=== PATIENT | female | born 1960 | race Caucasian/White ===

== ENCOUNTER 2016-06-18 09:48 | Observation (INO) | payer SELFPAY ==
--- NOTE | 2016-06-18 12:42 | RAD ---
HISTORY: Chest pain Study: Chest one view Comparison: None Findings: The trachea is midline. The cardiac silhouette is unremarkable. The lungs are clear without focal infiltrate or effusion. The bony thorax is unremarkable. IMPRESSION: 1. No acute cardiopulmonary disease. Reported By:
--- NOTE | 2016-06-18 13:32 | DR.H&P ---
H&P - History & Physical for Day of: H&P Date: 06/18/16 - Chief Complaint Chief Complaint: Chest tightness, Low back pain and body aches consisitent with Lupus flare. - Allergies Allergies/Adverse Reactions: Allergies Allergy/AdvReac Type Severity Reaction Status Date / Time Angel Luis AdvReac Verified 06/18/16 13:30 - History of Present Illness History of Present Illness: the patient is a 56-year-old white female who presents to the [facility] with complaints of increased back pain with muscle aches. States she is hurting all over. Has been taking Gabapentin. Complains of chest tightness as well. Denies nausea, URI, or fever. Does have history of Lupus. - Past Medical History Past Medical History: Anxiety Additional Medical History: ITP, Lupus - Past Surgical History Surgical History: Cholecystectomy, Hysterectomy, Spleenectomy, Tonsillectomy - Social History Does patient currently use any type of tobacco product: Yes Have you used tobacco products in the last 12 months: Yes Type of Tobacco Use: Cigarettes Does any household member use tobacco: No Alcohol Use: None Drug Use: None - Review of Systems Constitutional: Weakness, Malaise Eyes: No Symptoms Reported ENT: No Symptoms Reported Respiratory: No Symptoms Reported Cardiovascular: Chest Pain Gastrointestinal: No Symptoms Reported Genitourinary: No Symptoms Reported Musculoskeletal: Back Pain, Leg Pain, Other (DIFFUSE PAIN) Skin: No Symptoms Reported Oriented: Normal Eyes: Normal Ear: Normal Nose: Normal Throat: Normal Respiratory: Clear Throughout Cardiovascular: Normal : Normal Auscultation: Bowel Sounds: Normal Palpation: Normal Tenderness: Normal Skin: Normal Musculoskeletal: Right, Left, Elbow, Knee, Leg, Back:Lumbar, Tender Psychiatric: Normal Mood Description: Calm Affect: Quiet Speech Pattern: Clear - Assessment/Plan (1) Chest tightness Status: Acute Plan: CARDIAC ENZYMES AND EKGS (2) Lupus (systemic lupus erythematosus) Qualifiers: Systemic lupus erythematosus type: S Systemic lupus erythematosus organ involvement: S Status: Acute Plan: LABS, SOLUMEDROL, MORPHINE (3) Myalgia Status: Acute Plan: SOLUMEDROL (4) Low back pain Qualifiers: Chronicity: C Back pain laterality: B Sciatica presence: S Sciatica laterality: S Status: Acute Plan: MRI LUMBAR SPINE, SOLUMEDROL, MORPHINE
[2016-06-18 14:41] LABS: BASOPHILS # (AUTO) 0.1 X10^3/uL (0.0-0.1); BASOPHILS % (AUTO) 1.2 % (0.2-1.0); EOSINOPHILS # (AUTO) 0.1 x10^3/uL (0.0-0.2); EOSINOPHILS % (AUTO) 1.2 % (0.9-2.9); HEMATOCRIT 37.5 % (36.0-47.0); HEMOGLOBIN 12.4 g/dL (12.0-16.0); LYMPHOCYTES # (AUTO) 3.5 X10^3/uL (1.3-2.9); LYMPHOCYTES % (AUTO) 42.6 % (21.0-51.0); MEAN CORPUSCULAR HEMOGLOBIN 30.4 pg (27.0-34.0); MEAN CORPUSCULAR HGB CONC 33.1 g/dL (33.0-35.0); MEAN CORPUSCULAR VOLUME 91.8 fL (80.0-100.0); MEAN PLATELET VOLUME 9.6 fL (7.4-11.0); MONOCYTES # (AUTO) 0.7 x10^3/uL (0.3-0.8); MONOCYTES % (AUTO) 8.7 % (0.0-13.0); NEUTROPHILS # (AUTO) 3.8 x10^3/uL (2.2-4.8); NEUTROPHILS % (AUTO) 46.3 % (42.0-75.0); PLATELET COUNT 336 X10^3/uL (150.0-450.0); RED BLOOD COUNT 4.09 X10^6/uL (3.5-5.4); RED CELL DISTRIBUTION WIDTH 13.1 % (11.6-16.5); WHITE BLOOD COUNT 8.2 X10^3/uL (3.6-10.0)
[2016-06-18] MEDS: SOLU-Medrol 125 MG VIAL IVP SCH ×2 (14:44→21:16)
[2016-06-18] MEDS: NS 1000 ML 1,000 ML IV SCH (14:44)
[2016-06-18 14:49] LABS: ALANINE AMINOTRANSFERASE 24 Units/L (12-78); ALBUMIN 4.1 g/dL (3.4-5.0); ALKALINE PHOSPHATASE 69 Units/L (46-116); ASPARTATE AMINO TRANSFERASE 17 Units/L (15-37); BLOOD UREA NITROGEN 12 mg/dL (7-18); CARBON DIOXIDE 28.3 mmol/L (21-32); CHLORIDE 107 mmol/L (98-107); CREATININE 0.73 mg/dL (0.55-1.02); GLUCOSE 94 mg/dL (65-99); MAGNESIUM 1.9 mg/dL (1.7-2.9); SODIUM 144 mmol/L (136-145); eGFR BLACK RACES > 60 (>60); eGFR NON BLACK RACES > 60 (>60)
[2016-06-18 14:54] LABS: RHEUMATOID FACTOR NEGATIVE (NEGATIVE)
[2016-06-18 15:04] LABS: CKMB % 0.9 % (<4); CREATINE KINASE 118 Units/L (26-192); CREATINE KINASE MB < 1.0 ng/mL (0-4.0); TROPONIN I < 0.02 ng/mL (0-1.5)
[2016-06-18 15:27] LABS: ERYTHROCYTE SEDIMENTATION RATE 14 MM/HOUR (0-20)
[2016-06-18 15:46] LABS: BILIRUBIN,URINE NEGATIVE (NEGATIVE); BLOOD/HEMOGLOBIN,URINE NEGATIVE (NEGATIVE); GLUCOSE, URINE NEGATIVE (NEGATIVE); KETONES,URINE NEGATIVE (NEGATIVE); LEUKOCYTE ESTERASE ,URINE 3+ (NEGATIVE); NITRITES,URINE NEGATIVE (NEGATIVE); PH,URINE 6.5 (5.0 - 8.0); PROTEIN,URINE NEGATIVE (NEGATIVE); UROBILINOGEN,URINE NORMAL (NORMAL)
[2016-06-18 15:55] LABS: APPEARANCE,URINE HAZY (CLEAR); BACTERIA,URINE TRACE /HPF (NEGATIVE); COLOR,URINE YELLOW (YELLOW); RBC,URINE 0-2 /HPF (NEGATIVE); SQUAMOUS EPITHELIAL CELL,UR RARE /HPF (NEGATIVE)
[2016-06-18 16:26] VITALS: BMI 24.0
[2016-06-18 16:49] LABS: CKMB % 0.9 % (<4); CREATINE KINASE 108 Units/L (26-192); CREATINE KINASE MB < 1.0 ng/mL (0-4.0); TROPONIN I < 0.02 ng/mL (0-1.5)
--- NOTE | 2016-06-18 17:05 | MRI ---
MRI of lumbar spine without contrast Indication: Chronic lower back pain Comparison:None available Technique: Multiplanar multi-sequence MRI of the lumbar spine was obtained. Sagittal T1, sagittal T 2, and stir weighted images, axial T1, and axial T2 images were obtained. Findings: Lumbar spine demonstrates normal alignment without spondylolisthesis. There is a mild dextroscoliosi s of the lumbar spine. There is no localizing bone marrow signal abnormality within the lumbar spine . There is no significant disc desiccation or disc space loss. No prevertebral or paraspinal soft ti ssue swelling or fluid collection. The conus has a normal termination. Limited visualization of the abdomen and pelvis demonstrates the small cyst within the right kidney. At T12-L1: Unremarkable At L1-L2: Unremarkable At L2-3: Unremarkable At L3-4: Mild right lateralizing disc protrusion causes no significant spinal canal or neural forami nal stenosis. At L4-5: Mild facet arthropathy without spinal canal, neural foraminal stenosis. At L5-S1: Mild facet arthropathy without spinal canal or neural foraminal stenosis. IMPRESSION: Mild lumbar spine dextroscoliosis. No significant spinal canal or neural foraminal narrowing. Reported By:
[2016-06-18] MEDS: MORPHINE SULFATE INJ 2 MG IVP PRN ×2 (18:58→22:57)
[2016-06-18] MEDS: LOVENOX INJ 40 MG SYR SC SCH (20:46)
[2016-06-18 21:30] LABS: CREATINE KINASE 100 Units/L (26-192); CREATINE KINASE MB < 1.0 ng/mL (0-4.0); TROPONIN I < 0.02 ng/mL (0-1.5)
[2016-06-19] MEDS: NS 1000 ML 1,000 ML IV SCH ×2 (01:55→13:48)
[2016-06-19] MEDS: SOLU-Medrol 125 MG VIAL IVP SCH ×3 (05:34→21:53)
[2016-06-19 05:51] LABS: CHOL/HDL RATIO 3.2 (0.0-5.0)
[2016-06-19 07:08] LABS: BASOPHILS % (AUTO) 0.5 % (0.2-1.0); HEMATOCRIT 36.5 % (36.0-47.0); HEMOGLOBIN 12.2 g/dL (12.0-16.0); LYMPHOCYTES # (AUTO) 1.1 X10^3/uL (1.3-2.9); LYMPHOCYTES % (AUTO) 12.7 % (21.0-51.0); MEAN CORPUSCULAR HEMOGLOBIN 30.4 pg (27.0-34.0); MEAN CORPUSCULAR HGB CONC 33.4 g/dL (33.0-35.0); MEAN PLATELET VOLUME 10.2 fL (7.4-11.0); MONOCYTES # (AUTO) 0.1 x10^3/uL (0.3-0.8); MONOCYTES % (AUTO) 0.8 % (0.0-13.0); NEUTROPHILS # (AUTO) 7.1 x10^3/uL (2.2-4.8); PLATELET COUNT 325 X10^3/uL (150.0-450.0); RED BLOOD COUNT 4.01 X10^6/uL (3.5-5.4); WHITE BLOOD COUNT 8.3 X10^3/uL (3.6-10.0)
[2016-06-19 07:41] LABS: ALANINE AMINOTRANSFERASE 25 Units/L (12-78); ALBUMIN 3.5 g/dL (3.4-5.0); ALKALINE PHOSPHATASE 69 Units/L (46-116); ASPARTATE AMINO TRANSFERASE 24 Units/L (15-37); BLOOD UREA NITROGEN 13 mg/dL (7-18); CALCIUM 8.9 mg/dL (8.5-10.1); CARBON DIOXIDE 21.8 mmol/L (21-32); CHLORIDE 109 mmol/L (98-107); COR NA(FOR HYPERGLY) 144 mmol/L (136-145); CREATININE 0.76 mg/dL (0.55-1.02); GLUCOSE 160 mg/dL (65-99); SODIUM 143 mmol/L (136-145); eGFR BLACK RACES > 60 (>60); eGFR NON BLACK RACES > 60 (>60)
[2016-06-19] MEDS: LOVENOX INJ 40 MG SYR SC SCH ×2 (08:20→21:47)
[2016-06-19] MEDS: MORPHINE SULFATE INJ 2 MG IVP PRN (10:06)
--- NOTE | 2016-06-19 13:19 | PCM.PROG ---
Progress Note - Progress Note for Day of Date: 06/19/16 - Past Medical Family Social History Past Med/Fam/Surg Hx: No changes since H&P Allergies: Allergies Codeine Adverse Reaction (Verified 06/18/16 13:30) - Review of Systems ROS: No change since H&P - Vital Signs and I&O's Vital Signs: Temperature 98.9 F Pulse Rate [Right Brachial] 71 Respiratory Rate 16 Blood Pressure [Right Arm] 108/54 O2 Sat by Pulse Oximetry 97 Intake and Output: Intake & Output 06/17/16 06/18/16 06/19/16 06/20/16 11:59 11:59 11:59 11:59 Intake Total 1476 Balance 1476 - Physical Exam Oriented: Normal Eyes: Normal Ear: Normal Nose: Normal Throat: Normal Cardiovascular: Normal : Normal Auscultation: Bowel Sounds: Normal Tenderness: Normal Skin: Normal Musculoskeletal: Right, Left, Elbow, Knee, Leg, Back:Lumbar, Tender Psychiatric: Normal Mood Description: Calm Affect: Quiet Speech Pattern: Clear, Appropriate - Laboratory and Diagnostics Result Diagrams: 06/19/16 04:14 06/19/16 04:14 Labs: Laboratory WBC 8.3 X10^3/uL (3.6-10.0) 06/19/16 04:14 RBC 4.01 X10^6/uL (3.5-5.4) 06/19/16 04:14 Hgb 12.2 g/dL (12.0-16.0) 06/19/16 04:14 Hct 36.5 % (36.0-47.0) 06/19/16 04:14 MCV 91.0 fL (80.0-100.0) 06/19/16 04:14 MCH 30.4 pg (27.0-34.0) 06/19/16 04:14 MCHC 33.4 g/dL (33.0-35.0) 06/19/16 04:14 RDW 13.0 % (11.6-16.5) 06/19/16 04:14 Plt Count 325 X10^3/uL (150.0-450.0) 06/19/16 04:14 MPV 10.2 fL (7.4-11.0) 06/19/16 04:14 Neut % 86.0 % (42.0-75.0) H 06/19/16 04:14 Lymph % 12.7 % (21.0-51.0) L 06/19/16 04:14 [place] % 0.8 % (0.0-13.0) 06/19/16 04:14 Eos % 0.0 % (0.9-2.9) L 06/19/16 04:14 Baso % 0.5 % (0.2-1.0) 06/19/16 04:14 Neut # 7.1 x10^3/uL (2.2-4.8) H 06/19/16 04:14 Lymph # 1.1 X10^3/uL (1.3-2.9) L 06/19/16 04:14 [place] # 0.1 x10^3/uL (0.3-0.8) L 06/19/16 04:14 Eos # 0.0 x10^3/uL (0.0-0.2) 06/19/16 04:14 Baso # 0.0 X10^3/uL (0.0-0.1) 06/19/16 04:14 Absolute Nucleated RBC 0.1 /100WBC 06/19/16 04:14 ESR 14 MM/HOUR (0-20) 06/18/16 14:20 Sodium 143 mmol/L (136-145) 06/19/16 04:14 Corrected Sodium 144 mmol/L (136-145) 06/19/16 04:14 Potassium 4.3 mmol/L (3.5-5.1) 06/19/16 04:14 Chloride 109 mmol/L (98-107) H 06/19/16 04:14 Carbon Dioxide 21.8 mmol/L (21-32) 06/19/16 04:14 BUN 13 mg/dL (7-18) 06/19/16 04:14 Creatinine 0.76 mg/dL (0.55-1.02) 06/19/16 04:14 Est GFR (MDRD) Af Amer > 60 (>60) 06/19/16 04:14 Est GFR (MDRD) Non-Af > 60 (>60) 06/19/16 04:14 Glucose 160 mg/dL (65-99) H 06/19/16 04:14 Calcium 8.9 mg/dL (8.5-10.1) 06/19/16 04:14 Corrected Calcium TNP 06/19/16 04:14 Magnesium 1.9 mg/dL (1.7-2.9) 06/18/16 14:20 Total Bilirubin 0.50 mg/dL (0.2-1.0) 06/19/16 04:14 AST 24 Units/L (15-37) 06/19/16 04:14 ALT 25 Units/L (12-78) 06/19/16 04:14 Alkaline Phosphatase 69 Units/L (46-116) 06/19/16 04:14 Creatine Kinase 100 Units/L (26-192) 06/18/16 20:40 CK-MB (CK-2) < 1.0 ng/mL (0-4.0) 06/18/16 20:40 CK/CKMB % Calc 1.0 % (<4) 06/18/16 20:40 Troponin I < 0.02 ng/mL (0-1.5) 06/18/16 20:40 C-Reactive Protein 1.20 mg/L (0-3.0) 06/18/16 14:20 Total Protein 7.0 g/dL (6.4-8.2) 06/19/16 04:14 Albumin 3.5 g/dL (3.4-5.0) 06/19/16 04:14 Globulin 3.5 g/dL (2.5-4.5) 06/19/16 04:14 Albumin/Globulin Ratio 1.0 Ratio (1.1-2.1) L 06/19/16 04:14 Triglycerides 40 mg/dL (0-150) 06/19/16 04:14 Cholesterol 174 mg/dL (0-200) 06/19/16 04:14 LDL Cholesterol, Calc 112 mg/dL (0-100) H 06/19/16 04:14 HDL Cholesterol 54 mg/dL (40-60) 06/19/16 04:14 Cholesterol/HDL Ratio 3.2 (0.0-5.0) 06/19/16 04:14 Specimen Type Clean catch urine 06/18/16 15:41 Urine Color Yellow (YELLOW) 06/18/16 15:41 Urine Appearance Hazy (CLEAR) 06/18/16 15:41 Urine pH 6.5 (5.0 - 8.0) 06/18/16 15:41 Ur Specific [place] 1.020 (1.000-1.030) 06/18/16 15:41 Urine Protein Negative (NEGATIVE) 06/18/16 15:41 Urine Glucose (UA) Negative (NEGATIVE) 06/18/16 15:41 Urine Ketones Negative (NEGATIVE) 06/18/16 15:41 Urine Occult Blood Negative (NEGATIVE) 06/18/16 15:41 Urine Nitrite Negative (NEGATIVE) 06/18/16 15:41 Urine Bilirubin Negative (NEGATIVE) 06/18/16 15:41 Urine Urobilinogen Normal (NORMAL) 06/18/16 15:41 Ur Leukocyte Esterase 3+ (NEGATIVE) 06/18/16 15:41 Urine RBC 0-2 /HPF (NEGATIVE) 06/18/16 15:41 Urine WBC 3-5 /HPF (NEGATIVE) 06/18/16 15:41 Ur Squamous Epith Cells Rare /HPF (NEGATIVE) 06/18/16 15:41 Urine Bacteria Trace /HPF (NEGATIVE) 06/18/16 15:41 Ur Culture Indicated? No/not indicated 06/18/16 15:41 Rheumatoid Factor Negative (NEGATIVE) 06/18/16 14:20 - Plan (1) Chest tightness Status: Acute Plan: CARDIAC ENZYMES AND EKGS WNL, PLAN TO CONTINUE TO TREATMEN MS FLARE (2) Myalgia Status: Acute Plan: SOLUMEDROL (3) Low back pain Status: Chronic Qualifiers: Chronicity: C Back pain laterality: B Sciatica presence: S Sciatica laterality: S Plan: MRI LUMBAR SPINE, SOLUMEDROL, MORPHINE (4) Lupus (systemic lupus erythematosus) Status: Chronic Qualifiers: Systemic lupus erythematosus type: S Systemic lupus erythematosus organ involvement: S Plan: LABS, SOLUMEDROL, MORPHINE
[2016-06-19] MEDS: NEURONTIN CAP 400 MG PO SCH ×2 (13:43→21:51)
[2016-06-19] MEDS: PERCOCET TAB 5/325 MG PO SCH ×2 (14:00→21:50)
[2016-06-19] MEDS ORDERED: GABAPENTIN PO SCH (14:00)
[2016-06-19] MEDS: PROTONIX INJ 40 MG VIAL IVP SCH (16:40)
[2016-06-19] MEDS ORDERED: COLACE CAP 100 MG PO SCH (21:00)
[2016-06-20] MEDS: MORPHINE SULFATE INJ 2 MG IVP PRN (00:38)
[2016-06-20] MEDS: NS 1000 ML 1,000 ML IV SCH (03:54)
[2016-06-20] MEDS: PERCOCET TAB 5/325 MG PO SCH ×2 (03:54→09:25)
[2016-06-20 05:32] LABS: ALANINE AMINOTRANSFERASE 20 Units/L (12-78); ALKALINE PHOSPHATASE 55 Units/L (46-116); ASPARTATE AMINO TRANSFERASE 11 Units/L (15-37); BLOOD UREA NITROGEN 13 mg/dL (7-18); CALCIUM 8.5 mg/dL (8.5-10.1); CARBON DIOXIDE 24.4 mmol/L (21-32); CHLORIDE 112 mmol/L (98-107); COR CA(FOR HYPOALB) 9.3 mg/dL (8.5-10.1); COR NA(FOR HYPERGLY) 147 mmol/L (136-145); CREATININE 0.66 mg/dL (0.55-1.02); GLUCOSE 140 mg/dL (65-99); SODIUM 146 mmol/L (136-145); TOTAL PROTEIN 6.1 g/dL (6.4-8.2); eGFR BLACK RACES > 60 (>60); eGFR NON BLACK RACES > 60 (>60)
[2016-06-20] MEDS: SOLU-Medrol 125 MG VIAL IVP SCH (05:49)
[2016-06-20] MEDS: NEURONTIN CAP 400 MG PO SCH (05:49)
[2016-06-20 05:55] LABS: BASOPHILS % (AUTO) 0.2 % (0.2-1.0); HEMATOCRIT 34.3 % (36.0-47.0); HEMOGLOBIN 11.3 g/dL (12.0-16.0); LYMPHOCYTES # (AUTO) 1.6 X10^3/uL (1.3-2.9); MEAN CORPUSCULAR HEMOGLOBIN 30.4 pg (27.0-34.0); MEAN CORPUSCULAR VOLUME 92.1 fL (80.0-100.0); MONOCYTES # (AUTO) 0.4 x10^3/uL (0.3-0.8); MONOCYTES % (AUTO) 1.7 % (0.0-13.0); NEUTROPHILS # (AUTO) 20.3 x10^3/uL (2.2-4.8); NEUTROPHILS % (AUTO) 91.1 % (42.0-75.0); PLATELET COUNT 312 X10^3/uL (150.0-450.0); RED BLOOD COUNT 3.73 X10^6/uL (3.5-5.4); RED CELL DISTRIBUTION WIDTH 13.1 % (11.6-16.5)
[2016-06-20 05:57] LABS: WHITE BLOOD COUNT 22.3 X10^3/uL (3.6-10.0)
[2016-06-20 06:23] LABS: BAND NEUTROPHILS % 3 % (0-10); PLATELET MORPHOLOGY COMMENT NORMAL (NORMAL)
--- NOTE | 2016-06-20 07:00 | RAD ---
AP Chest Indication: Lower back and chest pain Comparison: 06/18/2016 Findings: The trachea is midline. The cardiac silhouette is unremarkable. The lungs are clear without focal infiltrate or effusion. The bony thorax is unremarkable. IMPRESSION: 1. No acute cardiopulmonary abnormality. Reported By:
[2016-06-20] MEDS: LOVENOX INJ 40 MG SYR SC SCH (09:24)
[2016-06-20] MEDS: PROTONIX INJ 40 MG VIAL IVP SCH (09:25)
--- NOTE | 2016-06-20 12:24 | PCM.DCPLAN ---
Discharge Summary - Admission Date Date of Admission: 06/18/16 - Discharge Date Discharge Date: 06/20/16 - Admission Diagnoses (1) Chest tightness Status: Acute (2) Myalgia Status: Acute (3) Low back pain Status: Chronic (4) Lupus (systemic lupus erythematosus) Status: Chronic - Discharge Diagnoses Discharge Diagnosis: SAME ADMISSION - Discharge Medications Discharge Medications: Feubvlkvqw-Oaffnwjcjuldk-Sxitj [Fioricet 50-300-40 mg] 1 tab PO TID 06/18/16 [ History] Gabapentin [Neurontin tab 800 mg] 2 tab PO TID MDD pain 06/18/16 [History] Oxycodone/Acet 5 mg/325 mg [PERCOCET 5/325 MG *] 1 tab PO Q6HR MDD pain [History] - Hospital Course Vital Signs: Temperature 97.8 F Pulse Rate [Right Brachial] 66 Respiratory Rate 20 Blood Pressure [Right Arm] 113/59 O2 Sat by Pulse Oximetry 96 Latest Lab Results: Laboratory Last Values WBC 22.3 X10^3/uL (3.6-10.0) H* 06/20/16 04:35 RBC 3.73 X10^6/uL (3.5-5.4) 06/20/16 04:35 Hgb 11.3 g/dL (12.0-16.0) L 06/20/16 04:35 Hct 34.3 % (36.0-47.0) L 06/20/16 04:35 MCV 92.1 fL (80.0-100.0) 06/20/16 04:35 MCH 30.4 pg (27.0-34.0) 06/20/16 04:35 MCHC 33.0 g/dL (33.0-35.0) 06/20/16 04:35 RDW 13.1 % (11.6-16.5) 06/20/16 04:35 Plt Count 312 X10^3/uL (150.0-450.0) 06/20/16 04:35 Plt Count Comment Adequate (ADEQUATE) 06/20/16 04:35 MPV 10.0 fL (7.4-11.0) 06/20/16 04:35 Neut % 91.1 % (42.0-75.0) H 06/20/16 04:35 Lymph % 7.0 % (21.0-51.0) L 06/20/16 04:35 [place] % 1.7 % (0.0-13.0) 06/20/16 04:35 Eos % 0.0 % (0.9-2.9) L 06/20/16 04:35 Baso % 0.2 % (0.2-1.0) 06/20/16 04:35 Neut # 20.3 x10^3/uL (2.2-4.8) H 06/20/16 04:35 Lymph # 1.6 X10^3/uL (1.3-2.9) 06/20/16 04:35 [place] # 0.4 x10^3/uL (0.3-0.8) 06/20/16 04:35 Eos # 0.0 x10^3/uL (0.0-0.2) 06/20/16 04:35 Baso # 0.0 X10^3/uL (0.0-0.1) 06/20/16 04:35 Absolute Nucleated RBC 0.0 /100WBC 06/20/16 04:35 Total Counted 100 06/20/16 04:35 Neutrophils % (Manual) 83 % (39-76) H 06/20/16 04:35 Band Neutrophils % 3 % (0-10) 06/20/16 04:35 Lymphocytes % (Manual) 10 % (13-43) L 06/20/16 04:35 Monocytes % (Manual) 4 % (4-9) 06/20/16 04:35 Plt Morphology Comment Normal (NORMAL) 06/20/16 04:35 RBC Morphology Normal (NORMAL) 06/20/16 04:35 ESR 14 MM/HOUR (0-20) 06/18/16 14:20 Sodium 146 mmol/L (136-145) H 06/20/16 04:35 Corrected Sodium 147 mmol/L (136-145) H 06/20/16 04:35 Potassium 4.2 mmol/L (3.5-5.1) 06/20/16 04:35 Chloride 112 mmol/L (98-107) H 06/20/16 04:35 Carbon Dioxide 24.4 mmol/L (21-32) 06/20/16 04:35 BUN 13 mg/dL (7-18) 06/20/16 04:35 Creatinine 0.66 mg/dL (0.55-1.02) 06/20/16 04:35 Est GFR (MDRD) Af Amer > 60 (>60) 06/20/16 04:35 Est GFR (MDRD) Non-Af > 60 (>60) 06/20/16 04:35 Glucose 140 mg/dL (65-99) H 06/20/16 04:35 Calcium 8.5 mg/dL (8.5-10.1) 06/20/16 04:35 Corrected Calcium 9.3 mg/dL (8.5-10.1) 06/20/16 04:35 Magnesium 1.9 mg/dL (1.7-2.9) 06/18/16 14:20 Total Bilirubin 0.50 mg/dL (0.2-1.0) 06/20/16 04:35 AST 11 Units/L (15-37) L 06/20/16 04:35 ALT 20 Units/L (12-78) 06/20/16 04:35 Alkaline Phosphatase 55 Units/L (46-116) 06/20/16 04:35 Creatine Kinase 100 Units/L (26-192) 06/18/16 20:40 CK-MB (CK-2) < 1.0 ng/mL (0-4.0) 06/18/16 20:40 CK/CKMB % Calc 1.0 % (<4) 06/18/16 20:40 Troponin I < 0.02 ng/mL (0-1.5) 06/18/16 20:40 C-Reactive Protein 1.20 mg/L (0-3.0) 06/18/16 14:20 Total Protein 6.1 g/dL (6.4-8.2) L 06/20/16 04:35 Albumin 3.0 g/dL (3.4-5.0) L 06/20/16 04:35 Globulin 3.1 g/dL (2.5-4.5) 06/20/16 04:35 Albumin/Globulin Ratio 1.0 Ratio (1.1-2.1) L 06/20/16 04:35 Triglycerides 40 mg/dL (0-150) 06/19/16 04:14 Cholesterol 174 mg/dL (0-200) 06/19/16 04:14 LDL Cholesterol, Calc 112 mg/dL (0-100) H 06/19/16 04:14 HDL Cholesterol 54 mg/dL (40-60) 06/19/16 04:14 Cholesterol/HDL Ratio 3.2 (0.0-5.0) 06/19/16 04:14 Specimen Type Clean catch urine 06/18/16 15:41 Urine Color Yellow (YELLOW) 06/18/16 15:41 Urine Appearance Hazy (CLEAR) 06/18/16 15:41 Urine pH 6.5 (5.0 - 8.0) 06/18/16 15:41 Ur Specific [place] 1.020 (1.000-1.030) 06/18/16 15:41 Urine Protein Negative (NEGATIVE) 06/18/16 15:41 Urine Glucose (UA) Negative (NEGATIVE) 06/18/16 15:41 Urine Ketones Negative (NEGATIVE) 06/18/16 15:41 Urine Occult Blood Negative (NEGATIVE) 06/18/16 15:41 Urine Nitrite Negative (NEGATIVE) 06/18/16 15:41 Urine Bilirubin Negative (NEGATIVE) 06/18/16 15:41 Urine Urobilinogen Normal (NORMAL) 06/18/16 15:41 Ur Leukocyte Esterase 3+ (NEGATIVE) 06/18/16 15:41 Urine RBC 0-2 /HPF (NEGATIVE) 06/18/16 15:41 Urine WBC 3-5 /HPF (NEGATIVE) 06/18/16 15:41 Ur Squamous Epith Cells Rare /HPF (NEGATIVE) 06/18/16 15:41 Urine Bacteria Trace /HPF (NEGATIVE) 06/18/16 15:41 Ur Culture Indicated? No/not indicated 06/18/16 15:41 Rheumatoid Factor Negative (NEGATIVE) 06/18/16 14:20 Hospital Course: PATIENT IS A 56-YEAR-OLD WHITE FEMALE WHO WAS A DIRECT ADMIT [facility] [place] [facility] WITH COMPLAINTS OF LUPUS EXACERBATION. pATIENT COMPLAINED OF DIFFUSE PAIN AND CHEST PAIN WELL SEVERE LOW BACK PAIN. pATIENT WAS TREATED WITH iv STEROIDS AND iv PAIN MEDICATION PATIENT HAD A LUMBAR SPINE mri WHICH REVEALED DEGENERATIVE DISC DISEASE. tHIS MORNING PATIENT'S CONDITION WAS OVERALL MUCH IMPROVED PATIENT'S SERIAL CARDIAC ENZYMES WERE NEGATIVE AND PATIENT DENIED ANY CHEST PAIN PATIENT'S WHITE BLOOD COUNT WAS ELEVATED DUE TO STEROIDS PATIENT INSTRUCTED TO FOLLOW-UP WITH PRIMARY CARE IN 1 WEEK FOR FURTHER EVALUATION. pATIENT INSTRUCTED TO INCREASE BY MOUTH HYDRATION AND REST AND RESUME HOME MEDICATIONS. - Discharge Plan Disposition: 01 HOME, SELF-CARE Condition: Stable - Follow ups/Referrals Follow ups/Referrals: DAVID COLEMAN [Nurse Practitioner] - 06/26/16 3:30 pm - Instructions Instructions: Systemic Lupus Erythematosus, Adult, Back Pain, Adult, Muscle Pain, Adult, Back Exercises, Immunosuppression Additional Instructions: DC HOME TO RESUME HOME MEDS SEND COPIES OF RAD REPORTS WITH PT FOLLOW UP WITH DAVID COLEMAN IN ONE WEEK Forms: Patient Portal
[2016-06-20 13:05] VITALS: BP 108/59
[2016-06-22 06:16] LABS: ANTI-NUCLEAR ANTIBODY TEST Detected (None Detected)
== END 2016-06-20 13:55 | disposition home or self-care (01) ==
LOC: MED/SURG 09:48
PROVIDERS: ADMIT Internal Medicine; ATTEND Internal Medicine
DX: M32.8 Other forms of systemic lupus erythematosus (principal); R07.89 Other chest pain; M54.5 Low back pain; M79.1 Myalgia; M41.86 Other forms of scoliosis, lumbar region
CPT/HCPCS: 36415; 71010; 72148; 80053; 80061; 81001; 82550; 82553; 83735; 84484; 85025; 85652; 86140; 86308; 86430; 93005; 93010; 94760; A4222; C9113; G0378; J1650; J2270; J2930

== ENCOUNTER 2016-08-23 14:41 | Observation (INO) | payer SELFPAY ==
[2016-08-23 16:05] VITALS: BMI 22.0
[2016-08-23 16:38] LABS: BASOPHILS # (AUTO) 0.1 X10^3/uL (0.0-0.1); BASOPHILS % (AUTO) 1.3 % (0.2-1.0); EOSINOPHILS # (AUTO) 0.2 x10^3/uL (0.0-0.2); EOSINOPHILS % (AUTO) 2.3 % (0.9-2.9); HEMATOCRIT 33.5 % (36.0-47.0); HEMOGLOBIN 11.4 g/dL (12.0-16.0); LYMPHOCYTES % (AUTO) 48.6 % (21.0-51.0); MEAN CORPUSCULAR HEMOGLOBIN 30.7 pg (27.0-34.0); MEAN CORPUSCULAR VOLUME 90.3 fL (80.0-100.0); MEAN PLATELET VOLUME 9.5 fL (7.4-11.0); MONOCYTES # (AUTO) 0.6 x10^3/uL (0.3-0.8); MONOCYTES % (AUTO) 7.4 % (0.0-13.0); NEUTROPHILS # (AUTO) 3.4 x10^3/uL (2.2-4.8); NEUTROPHILS % (AUTO) 40.4 % (42.0-75.0); PLATELET COUNT 290 X10^3/uL (150.0-450.0); RED CELL DISTRIBUTION WIDTH 13.2 % (11.6-16.5); WHITE BLOOD COUNT 8.3 X10^3/uL (3.6-10.0)
[2016-08-23 16:59] LABS: ALANINE AMINOTRANSFERASE 24 Units/L (12-78); ALBUMIN 3.6 g/dL (3.4-5.0); ALKALINE PHOSPHATASE 60 Units/L (46-116); ASPARTATE AMINO TRANSFERASE 18 Units/L (15-37); BLOOD UREA NITROGEN 17 mg/dL (7-18); CALCIUM 8.7 mg/dL (8.5-10.1); CARBON DIOXIDE 29.7 mmol/L (21-32); CHLORIDE 108 mmol/L (98-107); CKMB % 0.8 % (<4); COR NA(FOR HYPERGLY) 144 mmol/L (136-145); CREATINE KINASE 193 Units/L (26-192); CREATINE KINASE MB 1.6 ng/mL (0-4.0); GLUCOSE 112 mg/dL (65-99); SODIUM 144 mmol/L (136-145); TOTAL PROTEIN 6.6 g/dL (6.4-8.2); TROPONIN I < 0.02 ng/mL (0-1.5); eGFR BLACK RACES > 60 (>60); eGFR NON BLACK RACES > 60 (>60)
[2016-08-23] MEDS: NS 1000 ML 1,000 ML IV SCH (18:26)
[2016-08-23] MEDS ORDERED: PERCOCET TAB 5/325 MG PO PRN (18:28)
[2016-08-23 18:41] LABS: BILIRUBIN,URINE NEGATIVE (NEGATIVE); BLOOD/HEMOGLOBIN,URINE NEGATIVE (NEGATIVE); GLUCOSE, URINE NEGATIVE (NEGATIVE); KETONES,URINE NEGATIVE (NEGATIVE); LEUKOCYTE ESTERASE ,URINE 2+ (NEGATIVE); NITRITES,URINE NEGATIVE (NEGATIVE); PROTEIN,URINE NEGATIVE (NEGATIVE); UROBILINOGEN,URINE NORMAL (NORMAL)
[2016-08-23 18:57] LABS: APPEARANCE,URINE CLEAR (CLEAR); BACTERIA,URINE 1+ /HPF (NEGATIVE); COLOR,URINE YELLOW (YELLOW); MUCUS,URINE MODERATE /HPF (NEGATIVE); RBC,URINE 0-2 /HPF (NEGATIVE); SQUAMOUS EPITHELIAL CELL,UR FEW /HPF (NEGATIVE)
--- NOTE | 2016-08-23 21:42 | RAD ---
HISTORY: 56-year-old female with near syncopal episode. History of lupus. Study: Single frontal view of the chest. Comparison: Chest radiograph June 20, 2016. Findings: The trachea is midline. The cardiac silhouette is stable. No focal consolidation, effusion or pneu mothorax. The bony thorax is unremarkable. IMPRESSION: 1. No acute cardiopulmonary disease. Reported By:
[2016-08-23] MEDS ORDERED: NEURONTIN CAP 400 MG PO SCH (21:51)
[2016-08-23 22:44] LABS: CKMB % 0.6 % (<4); CREATINE KINASE 165 Units/L (26-192); TROPONIN I < 0.02 ng/mL (0-1.5)
[2016-08-24 05:04] LABS: CKMB % 0.8 % (<4); CREATINE KINASE 134 Units/L (26-192); CREATINE KINASE MB < 1.0 ng/mL (0-4.0); TROPONIN I < 0.02 ng/mL (0-1.5)
[2016-08-24] MEDS: NS 1000 ML 1,000 ML IV SCH ×2 (06:30→06:49)
[2016-08-24] MEDS ORDERED: NS 100 ML IV 0 ML IV ONE (09:32)
--- NOTE | 2016-08-24 12:09 | CT ---
HISTORY: Near syncope. Study: CT brain without contrast. Dose reduction techniques including Automated Exposure Control (A EC) and adjustment of mA and kV were utilized. Comparison: None. Technique: Multiple axial images of the brain were obtained from the skull base to the vertex without administr ation of IV contrast. Findings: No acute intraparenchymal hemorrhage or mass can be identified. No extra-axial fluid collections ar e seen. No alteration in the attenuation of the brain parenchyma can be identified to suggest acute or subacute ischemic change. The ventricular system is symmetric and nondilated. The extracranial structures are grossly unremarkable. IMPRESSION: No acute intracranial process can be identified. Reported By:
--- NOTE | 2016-08-24 13:18 | MRI ---
HISTORY: Syncope. Study: MRA carotids. Comparison: CT head dated same day. Technique: 3-D [id number] imaging of the bilateral carotid artery circulation was performed. Findings: The visualized carotid arteries demonstrate normal course and caliber without evidence of aneurysmal dilatation, focal stenosis, or dissection. No significant plaque burden. Left vertebral artery anne marie nant. The visualized soft tissues and lung apices appear normal. IMPRESSION: Unremarkable MRA of the carotid arteries. Reported By:
[2016-08-24] MEDS ORDERED: TORADOL 15 MG VIAL IVP ONE (14:28)
--- NOTE | 2016-08-24 14:37 | DR.CARTERS ---
Short Stay Summary - Short Stay Summary for: Short Stay Summary for Date of:: 08/24/16 - Admission Date Date of Admission: 08/23/16 - Discharge Date Discharge Date: 08/24/16 - Admission Diagnoses (1) Syncope, near Status: Acute (2) Lupus (systemic lupus erythematosus) Status: Chronic - Hospital Course Hospital Course: 56 EF DIRECT ADMIT FOR NEAR SYNCOPE EPISODE ONSET PRIOR TO ARRIVAL TO [facility]. PT DENIES ANY CP OR SOB ON ARRIVAL, PT STATES SHE HAS HAS WAVES OF DIZZINESS AND LEFT EYE PAIN WITHOUT VISION CHANGES. ON ADMISSION PT HAD CXR, SERIAL EKG'S AND CARDIAC EZYMES WITH WERE STABLE, PT HAD CT BRAIN AND MRA OF CAROTIDS WHICH WERE NEGATIVE FOR ACUTE FINDINGS. PT BP STABLE, PLAN TO DC HOME TO RESUME HOME MEDS RECOMMEND OUTPT STRESS TEST AND ECHO IF NOT ONE IN THE LAST YEAR. PT INSTRUCTED TO MONITOR BP AND KEEP A DIARY AND BRING IN FOR OFFICE VISIT IN ONE WEEK, PT INSTRUCTED TO SEE [facility]TH FOR EYE EXAM AND RETURN TO [facility] IF CONDITION CHANGES OR WORSENS - Discharge Medications Discharge Medications: Alprazolam [XANAX 0.5 MG *] 0.5 mg PO BID PRN 08/23/16 [History] Biotin 2,000 mcg PO DAILY 08/23/16 [History] Gabapentin 800 mg PO DAILY 08/23/16 [History] Magnesium Oxide [Magnesium 250 mg] 750 mg PO DAILY 08/23/16 [History] - Discharge Plan Disposition: 01 HOME, SELF-CARE Condition: Stable - Follow up/Referrals Follow up/Referrals: BO POSADAS [Primary Care Provider] - - Instructions Additional Instructions: D/C HOME TO RESUME HOME MEDS PT HAD UNREMARKABLE MRA CAROTIDS AND CT HEAD WILL INSTRUCT BP AND LIPID CONTROL NEEDS OUT PT STRESS TEST AND ECHO IF OVER 1 YEAR PT NEEDS OPTH EXAM WITHIN THE NEXT 2 WEEKS, IF PT DOES NOT HAD EYE DR, PLEASE REFER TO [facility] [place] PT WILL NEED TO FOLLOW UP WITH DR POSADAS IN ONE WEEK, BRING BP LOG TO APPOINTMENT, PT NEEDS TO INCREASE PO WATER INTAKE RETURN TO [facility] IF CONDITION CHANGES, WORSENS
[2016-08-24 17:34] VITALS: BP 109/53
[2016-08-24] MEDS ORDERED: NEURONTIN CAP 400 MG PO SCH (21:00)
[2016-08-24] MEDS ORDERED: NEURONTIN TAB 600 MG PO SCH (21:00)
== END 2016-08-24 17:30 | disposition home or self-care (01) ==
LOC: MED/SURG 14:41
PROVIDERS: ADMIT Internal Medicine; ATTEND Internal Medicine
DX: R55 Syncope and collapse (principal); M32.8 Other forms of systemic lupus erythematosus; D64.89 Other specified anemias; Z79.899 Other long term (current) drug therapy
CPT/HCPCS: 36415; 70450; 70547; 71010; 80053; 81001; 82550; 82553; 84484; 85025; 93005; 93010; 94760; A4216; A4222; G0378

== ENCOUNTER 2018-01-16 14:24 | Inpatient (IN) ==
[2018-01-16] MEDS ORDERED: SALINE 3% 15 ML NEB TX NEB ONE (17:23)
[2018-01-16 17:29] LABS: BASOPHILS # (AUTO) 0.1 X10^3/uL (0.0-0.1); BASOPHILS % (AUTO) 0.5 % (0.2-1.0); EOSINOPHILS % (AUTO) 0.3 % (0.9-2.9); HEMOGLOBIN 11.7 g/dL (12.0-16.0); LYMPHOCYTES # (AUTO) 3.4 X10^3/uL (1.3-2.9); LYMPHOCYTES % (AUTO) 28.1 % (21.0-51.0); MEAN CORPUSCULAR HEMOGLOBIN 31.2 pg (27.0-34.0); MEAN CORPUSCULAR HGB CONC 33.4 g/dL (33.0-35.0); MEAN CORPUSCULAR VOLUME 93.5 fL (80.0-100.0); MEAN PLATELET VOLUME 10.1 fL (7.4-11.0); MONOCYTES # (AUTO) 0.9 x10^3/uL (0.3-0.8); MONOCYTES % (AUTO) 7.4 % (0.0-13.0); NEUTROPHILS # (AUTO) 7.7 x10^3/uL (2.2-4.8); NEUTROPHILS % (AUTO) 63.7 % (42.0-75.0); PLATELET COUNT 316 X10^3/uL (150.0-450.0); RED BLOOD COUNT 3.74 X10^6/uL (3.5-5.4); RED CELL DISTRIBUTION WIDTH 13.1 % (11.6-16.5); WHITE BLOOD COUNT 12.1 X10^3/uL (3.6-10.0)
[2018-01-16 17:36] LABS: ALANINE AMINOTRANSFERASE 20 Units/L (12-78); ALBUMIN 3.8 g/dL (3.4-5.0); ALKALINE PHOSPHATASE 77 Units/L (46-116); ASPARTATE AMINO TRANSFERASE 13 Units/L (15-37); BLOOD UREA NITROGEN 13 mg/dL (7-18); CALCIUM 8.8 mg/dL (8.5-10.1); CARBON DIOXIDE 26.3 mmol/L (21-32); CHLORIDE 104 mmol/L (98-107); CREATININE 0.77 mg/dL (0.55-1.02); SODIUM 142 mmol/L (136-145); TOTAL PROTEIN 7.4 g/dL (6.4-8.2); eGFR NON BLACK RACES > 60 (>60)
[2018-01-16 18:01] VITALS: BMI 24.1
[2018-01-16] MEDS ORDERED: NS 1/2 1000 ML IV 1,000 ML IV ONE (18:07)
[2018-01-16 18:17] LABS: STREP A BY PCR NOT DETECTED (NOT DETECT)
[2018-01-16] MEDS: ROCEPHIN VIAL 1 GRAM IVP SCH (18:19)
[2018-01-16] MEDS: VIBRAMYCIN 100 MG in NS 100 ML IV + SPIKE MINIBAG* 100 ML IV SCH ×3 (18:19→23:37)
[2018-01-16] MEDS: ROBITUSSIN DM PO SCH ×2 (18:19→20:30)
[2018-01-16] MEDS: NS 1/2 1000 ML IV 1,000 ML IV SCH (18:19)
[2018-01-16] MEDS ORDERED: KLOR-CON PO PRN (21:33)
[2018-01-16] MEDS ORDERED: MICRO K EXTEN CAP 10 MEQ PO PRN (21:33)
[2018-01-16] MEDS ORDERED: POTASSIUM CHL 60 MEQ/NS 0.45% 500 ML IV PRN (21:33)
[2018-01-16] MEDS ORDERED: K-RIDER 10 MEQ/NS 100 ML 10 MEQ/100 ML BAG IV PRN (21:33)
[2018-01-16] MEDS ORDERED: POTASSIUM CHLORIDE LIQ 20 MEQ UDC PO PRN (21:33)
[2018-01-16] MEDS ORDERED: POTASSIUM CHL 40 MEQ/NS 0.45% 500 ML IV PRN (21:33)
[2018-01-16] MEDS: DUONEB 0.5 MG/3 MG NEB SCH (21:54)
[2018-01-16] MEDS: K-DUR TAB 20 MEQ PO PRN (22:24)
--- NOTE | 2018-01-16 22:33 | RAD ---
HISTORY: Pneumonia, cough, sore throat Study: Two views the chest Comparison: August 26, 2017 Findings: The trachea is midline. The cardiac silhouette is unremarkable. Interstitial changes are seen within both lungs. Hazy opacification within the left lower lobe may reflect infiltrate. Recommend clinical correlation and continued follow-up as indicated for further evaluation. An approximate 5 mm nodular opacity is seen within the periphery of the right upper lobe and may be further evaluated with follow-up CT of the chest. The aortic knob is partially calcified. Levocurvature of the thoracolumbar spine is noted. IMPRESSION: Interstitial changes with questionable left basilar infiltrate. 5 mm nodular opacity projecting over the periphery of the right upper lobe as noted above. Reported By:
[2018-01-17] MEDS ORDERED: NS 1/2 1000 ML IV 1,000 ML IV ONE (05:28)
[2018-01-17] MEDS: NS 1/2 1000 ML IV 1,000 ML IV SCH ×2 (05:38→21:41)
[2018-01-17 06:32] LABS: BASOPHILS # (AUTO) 0.1 X10^3/uL (0.0-0.1); BASOPHILS % (AUTO) 0.7 % (0.2-1.0); EOSINOPHILS % (AUTO) 0.2 % (0.9-2.9); HEMATOCRIT 33.9 % (36.0-47.0); HEMOGLOBIN 11.4 g/dL (12.0-16.0); LYMPHOCYTES # (AUTO) 3.5 X10^3/uL (1.3-2.9); MEAN CORPUSCULAR HEMOGLOBIN 31.3 pg (27.0-34.0); MEAN CORPUSCULAR HGB CONC 33.6 g/dL (33.0-35.0); MEAN CORPUSCULAR VOLUME 93.2 fL (80.0-100.0); MEAN PLATELET VOLUME 10.4 fL (7.4-11.0); MONOCYTES % (AUTO) 7.4 % (0.0-13.0); NEUTROPHILS # (AUTO) 9.3 x10^3/uL (2.2-4.8); NEUTROPHILS % (AUTO) 66.7 % (42.0-75.0); PLATELET COUNT 282 X10^3/uL (150.0-450.0); RED BLOOD COUNT 3.64 X10^6/uL (3.5-5.4); RED CELL DISTRIBUTION WIDTH 12.9 % (11.6-16.5)
[2018-01-17 06:50] LABS: ALANINE AMINOTRANSFERASE 18 Units/L (12-78); ALBUMIN 3.4 g/dL (3.4-5.0); ALKALINE PHOSPHATASE 71 Units/L (46-116); ASPARTATE AMINO TRANSFERASE 15 Units/L (15-37); BLOOD UREA NITROGEN 11 mg/dL (7-18); CARBON DIOXIDE 24.2 mmol/L (21-32); CHLORIDE 106 mmol/L (98-107); SODIUM 143 mmol/L (136-145); TOTAL PROTEIN 6.9 g/dL (6.4-8.2); eGFR NON BLACK RACES > 60 (>60)
[2018-01-17] MEDS: ROBITUSSIN DM PO SCH ×4 (08:28→21:36)
[2018-01-17] MEDS: ROCEPHIN VIAL 1 GRAM IVP SCH (08:28)
[2018-01-17] MEDS: VIBRAMYCIN 100 MG in NS 100 ML IV + SPIKE MINIBAG* 100 ML IV SCH ×2 (08:28→21:36)
[2018-01-17] MEDS: DUONEB 0.5 MG/3 MG NEB SCH ×4 (09:21→20:38)
--- NOTE | 2018-01-17 09:21 | DR.H&P ---
H&P - History & Physical for Day of: H&P Date: 01/16/18 - Chief Complaint Chief Complaint: Fever, weakness, body aches, cough and congestion - History of Present Illness History of Present Illness: The patient is a 57-year-old white female who presents to the office with complaint of generalized body aches with fever cough and congestion. States that she does not feel good. States this is been ongoing for the hospital one week states she's had a nonproductive cough. Does have sinus congestion. Patient has history of lupus. States that she has been taking [id number]-its-sssfbyg medications without improvement. Patient states she feels weak and has not been eating and drinking. Patient agrees on admission. - Past Medical History Past Medical History: Anxiety Additional Medical History: ITP, Lupus - Past Surgical History Surgical History: Cholecystectomy, [employer] Surgery, Hysterectomy, Tonsillectomy - Family History Family Medical History: Cancer, Heart Failure - Social History Does patient currently use any type of tobacco product: No Have you used tobacco products in the last 12 months: No Type of Tobacco Use: None Does any household member use tobacco: No Alcohol Use: None Drug Use: None - Medications Home Medications: codeine Allergy (Verified 08/23/16 15:57) - Review of Systems Constitutional: Fever, Weakness, Malaise Eyes: No Symptoms Reported ENT: Nose Congestion Respiratory: Cough, Shortness of Breath, Wheezing Cardiovascular: No Symptoms Reported Gastrointestinal: No Symptoms Reported Genitourinary: No Symptoms Reported Musculoskeletal: Other (Generalized muscle aches) Skin: No Symptoms Reported Neurological: No Symptoms Reported - Physical Exam Vital Signs: Temperature 98.6 F Pulse Rate [Left Brachial] 92 Pulse Rate 91 Respiratory Rate 18 Blood Pressure [Left Arm] 109/61 Blood Pressure [Right Arm] 113/58 Blood Pressure 138/77 O2 Sat by Pulse Oximetry 97 Oriented: Normal Eyes: Normal Ear: Normal Throat: Normal Respiratory: Diminished Throughout Cardiovascular: Normal : Normal Auscultation: Bowel Sounds: Normal Palpation: Normal Tenderness: Normal Skin: Normal Musculoskeletal: Normal Psychiatric: Normal Mood Description: Calm, Flat Affect: Normal Speech Pattern: Clear - Assessment/Plan (1) Upper respiratory infection Status: Acute Plan: Labs, CXR, IV Antibiotics (2) Pneumonia Status: Acute Plan: LABS, CXR, IV Antibiotics (3) Myalgia Status: Acute Plan: labs (4) Lupus (systemic lupus erythematosus) Status: Chronic (5) Dehydration Status: Acute Plan: Labs, IV hydration - Allergies Allergies/Adverse Reactions: Allergies Allergy/AdvReac Type Severity Reaction Status Date / Time codeine Allergy Verified 08/23/16 15:57
[2018-01-17] MEDS ORDERED: CHLORASEPTIC SPRAY MT PRN (09:38)
--- NOTE | 2018-01-17 11:51 | CT ---
CT CHEST WITH IV CONTRAST HISTORY: Pneumonia and cough. Lung nodule. Comparison: Chest x-ray 01/17/2020 Technique: Multiple axial images of the chest were obtained from the thoracic inlet to the upper abdomen after the administration of IV contrast.Dose reduction techniques including Automated Exposure Control (AEC) and adjustment of mA and kV were utlized. Findings: The heart is normal in size. No pericardial effusion. No suspicious mediastinal or axillary lymph nodes. Although not optimized to detect pulmonary embolism, no large central pulmonary emboli are seen. No focal consolidations, pleural effusions or pneumothorax. Airways are patent. No suspicious pulmonary nodules or masses. Splenosis in the left upper quadrant consistent with patient's history of splenectomy. No aggressive osseous lesions. IMPRESSION: 1. No evidence of pneumonia or suspicious pulmonary nodule. Reported By:
--- NOTE | 2018-01-17 14:42 | PCM.PROG ---
Progress Note - Progress Note for Day of Date of Exam: 01/17/18 - Subjective Subjective: 57 WF DIRECT ADMIT ON 01/17 WITH PNEUMONIA. PT CURRENTLY ON PNEUMONIA PROTOCOL, SPUTUM COLLECTED ON ADMISSION PENDING. PT REPORTS CONTINUE PRODUCTIVE COUGH, IMPROVING WHEEZING AND SOB. PT HAD XRAY WITH SUSPECTED LUNG NODULE AND PNEUMONIA. PLAN TO CONTINUE CURRENT MEDICATION, ADDED CHLORASEPTIC THROAT SPRAY AND CT CHEST WITH CONTRAST. - Past Medical Family Social History Past Med/Fam/Surg Hx: No changes since H&P Allergies: Allergies codeine Allergy (Verified 08/23/16 15:57) - Review of Systems ROS: No change since H&P - Vital Signs and I&O's Vital Signs: Temperature 99.2 F Pulse Rate [Left Brachial] 91 Pulse Rate 91 Respiratory Rate 20 Blood Pressure [Left Arm] 111/59 Blood Pressure [Right Arm] 113/58 Blood Pressure 138/77 O2 Sat by Pulse Oximetry 99 Intake and Output: Intake & Output 01/15/18 01/16/18 01/17/18 01/18/18 11:59 11:59 11:59 11:59 Intake Total 1189 / 1189 Balance 1189 / 1189 - Physical Exam Oriented: Normal Eyes: Normal Ear: Normal Throat: Normal Respiratory: Diminished, Wheezes, Rhonchi Cardiovascular: Normal : Normal Auscultation: Bowel Sounds: Normal Tenderness: Normal Skin: Normal Musculoskeletal: Normal Psychiatric: Normal Mood Description: Calm, Flat Affect: Normal Speech Pattern: Clear - Laboratory and Diagnostics Result Diagrams: 01/17/18 04:20 01/17/18 04:20 Labs: 01/17/18 08:57 Sputum - Expectorated Sputum - Final Laboratory WBC 14.0 X10^3/uL (3.6-10.0) H 01/17/18 04:20 RBC 3.64 X10^6/uL (3.5-5.4) 01/17/18 04:20 Hgb 11.4 g/dL (12.0-16.0) L 01/17/18 04:20 Hct 33.9 % (36.0-47.0) L 01/17/18 04:20 MCV 93.2 fL (80.0-100.0) 01/17/18 04:20 MCH 31.3 pg (27.0-34.0) 01/17/18 04:20 MCHC 33.6 g/dL (33.0-35.0) 01/17/18 04:20 RDW 12.9 % (11.6-16.5) 01/17/18 04:20 Plt Count 282 X10^3/uL (150.0-450.0) 01/17/18 04:20 MPV 10.4 fL (7.4-11.0) 01/17/18 04:20 Neut % (Auto) 66.7 % (42.0-75.0) 01/17/18 04:20 Lymph % (Auto) 25.0 % (21.0-51.0) 01/17/18 04:20 Graves % (Auto) 7.4 % (0.0-13.0) 01/17/18 04:20 Eos % (Auto) 0.2 % (0.9-2.9) L 01/17/18 04:20 Baso % (Auto) 0.7 % (0.2-1.0) 01/17/18 04:20 Neut # (Auto) 9.3 x10^3/uL (2.2-4.8) H 01/17/18 04:20 Lymph # (Auto) 3.5 X10^3/uL (1.3-2.9) H 01/17/18 04:20 Graves # (Auto) 1.0 x10^3/uL (0.3-0.8) H 01/17/18 04:20 Eos # (Auto) 0.0 x10^3/uL (0.0-0.2) 01/17/18 04:20 Baso # (Auto) 0.1 X10^3/uL (0.0-0.1) 01/17/18 04:20 Absolute Nucleated RBC 0.0 /100WBC 01/17/18 04:20 Sodium 143 mmol/L (136-145) 01/17/18 04:20 Corrected Sodium TNP 01/17/18 04:20 Potassium 3.9 mmol/L (3.5-5.1) 01/17/18 04:20 Chloride 106 mmol/L (98-107) 01/17/18 04:20 Carbon Dioxide 24.2 mmol/L (21-32) 01/17/18 04:20 BUN 11 mg/dL (7-18) 01/17/18 04:20 Creatinine 0.60 mg/dL (0.55-1.02) 01/17/18 04:20 Est GFR (MDRD) Af Amer > 60 (>60) 01/17/18 04:20 Est GFR (MDRD) Non-Af > 60 (>60) 01/17/18 04:20 Glucose 76 mg/dL (65-99) 01/17/18 04:20 Lactic Acid 1.1 mmol/L (0.4-2.0) 01/16/18 17:00 Calcium 8.0 mg/dL (8.5-10.1) L 01/17/18 04:20 Corrected Calcium TNP 01/17/18 04:20 Magnesium 1.8 mg/dL (1.7-2.9) 01/16/18 17:00 Total Bilirubin 0.40 mg/dL (0.2-1.0) 01/17/18 04:20 AST 15 Units/L (15-37) 01/17/18 04:20 ALT 18 Units/L (12-78) 01/17/18 04:20 Alkaline Phosphatase 71 Units/L (46-116) 01/17/18 04:20 Total Protein 6.9 g/dL (6.4-8.2) 01/17/18 04:20 Albumin 3.4 g/dL (3.4-5.0) 01/17/18 04:20 Globulin 3.5 g/dL (2.5-4.5) 01/17/18 04:20 Albumin/Globulin Ratio 1.0 Ratio (1.1-2.1) L 01/17/18 04:20 Influenza Type A (PCR) Negative (NEGATIVE) 01/16/18 16:41 Influenza Type B (PCR) Negative (NEGATIVE) 01/16/18 16:41 S. pyogenes (TEM-PCR) Not detected (NOT DETECT) 01/16/18 16:41 - Plan (1) Pneumonia Status: Acute Plan: AM LABS, IV Antibiotics, RESP THERAPY AND SUPPLEMENTAL O2. CT CHEST TO EVALUATE ABNORMAL CXR FINDINGS (2) Dehydration Status: Acute Plan: Labs, IV hydration (3) Lupus (systemic lupus erythematosus) Status: Chronic
[2018-01-17] MEDS ORDERED: RESTORIL CAP 15 MG PO PRN (21:54)
[2018-01-18 06:20] LABS: BASOPHILS # (AUTO) 0.1 X10^3/uL (0.0-0.1); BASOPHILS % (AUTO) 0.7 % (0.2-1.0); EOSINOPHILS # (AUTO) 0.2 x10^3/uL (0.0-0.2); EOSINOPHILS % (AUTO) 1.5 % (0.9-2.9); HEMATOCRIT 33.9 % (36.0-47.0); HEMOGLOBIN 11.3 g/dL (12.0-16.0); LYMPHOCYTES # (AUTO) 2.8 X10^3/uL (1.3-2.9); LYMPHOCYTES % (AUTO) 25.5 % (21.0-51.0); MEAN CORPUSCULAR HEMOGLOBIN 31.2 pg (27.0-34.0); MEAN CORPUSCULAR HGB CONC 33.4 g/dL (33.0-35.0); MEAN CORPUSCULAR VOLUME 93.2 fL (80.0-100.0); MEAN PLATELET VOLUME 10.4 fL (7.4-11.0); MONOCYTES # (AUTO) 0.9 x10^3/uL (0.3-0.8); MONOCYTES % (AUTO) 8.5 % (0.0-13.0); NEUTROPHILS % (AUTO) 63.8 % (42.0-75.0); PLATELET COUNT 281 X10^3/uL (150.0-450.0); RED BLOOD COUNT 3.64 X10^6/uL (3.5-5.4); RED CELL DISTRIBUTION WIDTH 13.1 % (11.6-16.5); WHITE BLOOD COUNT 10.9 X10^3/uL (3.6-10.0)
[2018-01-18 06:42] LABS: ALANINE AMINOTRANSFERASE 20 Units/L (12-78); ALBUMIN 3.2 g/dL (3.4-5.0); ALKALINE PHOSPHATASE 76 Units/L (46-116); ASPARTATE AMINO TRANSFERASE 13 Units/L (15-37); BLOOD UREA NITROGEN 8 mg/dL (7-18); CALCIUM 8.3 mg/dL (8.5-10.1); CARBON DIOXIDE 24.9 mmol/L (21-32); CHLORIDE 108 mmol/L (98-107); COR CA(FOR HYPOALB) 8.9 mg/dL (8.5-10.1); CREATININE 0.54 mg/dL (0.55-1.02); SODIUM 144 mmol/L (136-145); TOTAL PROTEIN 6.8 g/dL (6.4-8.2); eGFR NON BLACK RACES > 60 (>60)
[2018-01-18] MEDS: ROBITUSSIN DM PO SCH ×4 (08:25→21:07)
[2018-01-18] MEDS: ROCEPHIN VIAL 1 GRAM IVP SCH (09:14)
[2018-01-18] MEDS: VIBRAMYCIN 100 MG in NS 100 ML IV + SPIKE MINIBAG* 100 ML IV SCH (09:15)
[2018-01-18] MEDS: DUONEB 0.5 MG/3 MG NEB SCH ×4 (09:20→20:14)
[2018-01-18] MEDS: ZITHROMAX INJ 500 MG VIAL 500 MG in NS 250 ML IV 250 ML IV SCH (11:31)
[2018-01-18] MEDS ORDERED: FIORICET TAB PO PRN (11:34)
[2018-01-18] MEDS: NS 1000 ML 1,000 ML IV SCH (12:21)
[2018-01-18] MEDS ORDERED: SOLU-Medrol 40 MG VIAL IVP SCH (14:00)
[2018-01-18] MEDS: NEURONTIN CAP 400 MG PO SCH ×2 (14:14→21:08)
[2018-01-18] MEDS: LOVENOX INJ 40 MG SYR SC SCH (17:01)
[2018-01-18] MEDS ORDERED: MAGNESIUM SULFATE 1 GRAM/100 mL PREMIX 1 GM/100 ML BAG IV PRN (20:00)
[2018-01-18] MEDS: K-DUR TAB 20 MEQ PO PRN (21:07)
[2018-01-19] MEDS ORDERED: DUONEB 0.5 MG/3 MG NEB PRN (00:12)
[2018-01-19] MEDS: NS 1000 ML 1,000 ML IV SCH ×2 (05:16→16:59)
[2018-01-19] MEDS: NEURONTIN CAP 400 MG PO SCH ×3 (05:17→21:40)
[2018-01-19 06:53] LABS: BASOPHILS # (AUTO) 0.1 X10^3/uL (0.0-0.1); BASOPHILS % (AUTO) 0.8 % (0.2-1.0); EOSINOPHILS # (AUTO) 0.3 x10^3/uL (0.0-0.2); EOSINOPHILS % (AUTO) 3.1 % (0.9-2.9); HEMATOCRIT 36.1 % (36.0-47.0); HEMOGLOBIN 12.1 g/dL (12.0-16.0); LYMPHOCYTES # (AUTO) 3.4 X10^3/uL (1.3-2.9); LYMPHOCYTES % (AUTO) 39.4 % (21.0-51.0); MEAN CORPUSCULAR HEMOGLOBIN 31.4 pg (27.0-34.0); MEAN CORPUSCULAR HGB CONC 33.4 g/dL (33.0-35.0); MEAN CORPUSCULAR VOLUME 93.9 fL (80.0-100.0); MEAN PLATELET VOLUME 10.5 fL (7.4-11.0); MONOCYTES # (AUTO) 0.7 x10^3/uL (0.3-0.8); MONOCYTES % (AUTO) 7.8 % (0.0-13.0); NEUTROPHILS # (AUTO) 4.3 x10^3/uL (2.2-4.8); NEUTROPHILS % (AUTO) 48.9 % (42.0-75.0); PLATELET COUNT 310 X10^3/uL (150.0-450.0); RED BLOOD COUNT 3.84 X10^6/uL (3.5-5.4); RED CELL DISTRIBUTION WIDTH 13.1 % (11.6-16.5); WHITE BLOOD COUNT 8.7 X10^3/uL (3.6-10.0)
[2018-01-19 07:16] LABS: ALANINE AMINOTRANSFERASE 21 Units/L (12-78); ALBUMIN 3.3 g/dL (3.4-5.0); ALKALINE PHOSPHATASE 76 Units/L (46-116); ASPARTATE AMINO TRANSFERASE 15 Units/L (15-37); BLOOD UREA NITROGEN 10 mg/dL (7-18); CALCIUM 8.5 mg/dL (8.5-10.1); CARBON DIOXIDE 25.3 mmol/L (21-32); CHLORIDE 108 mmol/L (98-107); COR CA(FOR HYPOALB) 9.1 mg/dL (8.5-10.1); CREATININE 0.62 mg/dL (0.55-1.02); SODIUM 145 mmol/L (136-145); eGFR NON BLACK RACES > 60 (>60)
[2018-01-19] MEDS: ROBITUSSIN DM PO SCH ×4 (08:45→21:40)
[2018-01-19] MEDS: LOVENOX INJ 40 MG SYR SC SCH (08:46)
[2018-01-19] MEDS: ZITHROMAX INJ 500 MG VIAL 500 MG in NS 250 ML IV 250 ML IV SCH (08:46)
[2018-01-19] MEDS: LEVAQUIN PREMIX IV 750 MG 750 MG/150 ML BAG IV SCH (10:33)
[2018-01-19] MEDS: ROCEPHIN VIAL 1 GRAM IVP SCH (10:33)
[2018-01-20 05:31] LABS: BASOPHILS # (AUTO) 0.1 X10^3/uL (0.0-0.1); BASOPHILS % (AUTO) 1.5 % (0.2-1.0); EOSINOPHILS # (AUTO) 0.3 x10^3/uL (0.0-0.2); EOSINOPHILS % (AUTO) 3.1 % (0.9-2.9); HEMATOCRIT 34.3 % (36.0-47.0); HEMOGLOBIN 11.3 g/dL (12.0-16.0); LYMPHOCYTES # (AUTO) 3.7 X10^3/uL (1.3-2.9); LYMPHOCYTES % (AUTO) 45.2 % (21.0-51.0); MEAN CORPUSCULAR HEMOGLOBIN 30.8 pg (27.0-34.0); MEAN CORPUSCULAR HGB CONC 32.9 g/dL (33.0-35.0); MEAN CORPUSCULAR VOLUME 93.4 fL (80.0-100.0); MEAN PLATELET VOLUME 9.7 fL (7.4-11.0); MONOCYTES # (AUTO) 0.7 x10^3/uL (0.3-0.8); MONOCYTES % (AUTO) 8.9 % (0.0-13.0); NEUTROPHILS # (AUTO) 3.4 x10^3/uL (2.2-4.8); NEUTROPHILS % (AUTO) 41.3 % (42.0-75.0); PLATELET COUNT 310 X10^3/uL (150.0-450.0); RED BLOOD COUNT 3.68 X10^6/uL (3.5-5.4); RED CELL DISTRIBUTION WIDTH 12.8 % (11.6-16.5); WHITE BLOOD COUNT 8.3 X10^3/uL (3.6-10.0)
[2018-01-20 05:36] LABS: ALANINE AMINOTRANSFERASE 22 Units/L (12-78); ALBUMIN 3.1 g/dL (3.4-5.0); ALKALINE PHOSPHATASE 74 Units/L (46-116); ASPARTATE AMINO TRANSFERASE 13 Units/L (15-37); BLOOD UREA NITROGEN 11 mg/dL (7-18); CALCIUM 8.5 mg/dL (8.5-10.1); CARBON DIOXIDE 24.4 mmol/L (21-32); CHLORIDE 108 mmol/L (98-107); COR CA(FOR HYPOALB) 9.2 mg/dL (8.5-10.1); CREATININE 0.61 mg/dL (0.55-1.02); SODIUM 143 mmol/L (136-145); TOTAL PROTEIN 6.7 g/dL (6.4-8.2); eGFR NON BLACK RACES > 60 (>60)
[2018-01-20] MEDS: NEURONTIN CAP 400 MG PO SCH (05:37)
[2018-01-20 07:52] VITALS: BP 107/66
[2018-01-20] MEDS: LEVAQUIN PREMIX IV 750 MG 750 MG/150 ML BAG IV SCH (08:36)
[2018-01-20] MEDS: LOVENOX INJ 40 MG SYR SC SCH (08:37)
[2018-01-20] MEDS: ROBITUSSIN DM PO SCH (08:37)
[2018-01-20] MEDS: ROCEPHIN VIAL 1 GRAM IVP SCH (08:37)
--- NOTE | 2018-02-14 11:44 | PCM.PROG ---
Progress Note - Progress Note for Day of Date of Exam: 01/18/18 - Subjective Subjective: 57 WF DIRECT ADMIT ON 01/17 WITH PNEUMONIA. PT CURRENTLY ON PNEUMONIA PROTOCOL, SPUTUM COLLECTED ON ADMISSION PENDING. PT REPORTS CONTINUE PRODUCTIVE COUGH, IMPROVING WHEEZING AND SOB. PT HAD XRAY WITH SUSPECTED LUNG NODULE AND PNEUMONIA. PLAN TO CONTINUE CURRENT MEDICATION. DENIES ANY OTHER COMPLAINTS. - Past Medical Family Social History Past Med/Fam/Surg Hx: No changes since H&P Allergies: Allergies codeine Allergy (Verified 08/23/16 15:57) - Review of Systems ROS: No change since H&P - Vital Signs and I&O's Vital Signs: Temperature 98.5 F Pulse Rate [Left Brachial] 92 Pulse Rate 89 Respiratory Rate 20 Blood Pressure [Left Arm] 118/73 Blood Pressure [Right Arm] 107/66 Blood Pressure 138/77 O2 Sat by Pulse Oximetry 97 - Physical Exam Oriented: Normal Eyes: Normal Ear: Normal Throat: Normal Respiratory: Diminished, Wheezes, Rhonchi Cardiovascular: Normal : Normal Auscultation: Bowel Sounds: Normal Tenderness: Normal Skin: Normal Musculoskeletal: Normal Psychiatric: Normal Mood Description: Calm, Flat Affect: Normal Speech Pattern: Clear, Appropriate - Laboratory and Diagnostics Result Diagrams: 01/20/18 05:00 01/20/18 05:00 Labs: 01/16/18 17:00 Blood Blood Culture - Final 01/16/18 16:50 Blood Blood Culture - Final 01/17/18 08:57 Sputum - Expectorated Sputum Sputum Culture - Final Enterobacter Aerogenes 01/17/18 08:57 Sputum - Expectorated Sputum - Final Laboratory WBC 8.3 X10^3/uL (3.6-10.0) 01/20/18 05:00 RBC 3.68 X10^6/uL (3.5-5.4) 01/20/18 05:00 Hgb 11.3 g/dL (12.0-16.0) L 01/20/18 05:00 Hct 34.3 % (36.0-47.0) L 01/20/18 05:00 MCV 93.4 fL (80.0-100.0) 01/20/18 05:00 MCH 30.8 pg (27.0-34.0) 01/20/18 05:00 MCHC 32.9 g/dL (33.0-35.0) L 01/20/18 05:00 RDW 12.8 % (11.6-16.5) 01/20/18 05:00 Plt Count 310 X10^3/uL (150.0-450.0) 01/20/18 05:00 MPV 9.7 fL (7.4-11.0) 01/20/18 05:00 Neut % (Auto) 41.3 % (42.0-75.0) L 01/20/18 05:00 Lymph % (Auto) 45.2 % (21.0-51.0) 01/20/18 05:00 Morrison % (Auto) 8.9 % (0.0-13.0) 01/20/18 05:00 Eos % (Auto) 3.1 % (0.9-2.9) H 01/20/18 05:00 Baso % (Auto) 1.5 % (0.2-1.0) H 01/20/18 05:00 Neut # (Auto) 3.4 x10^3/uL (2.2-4.8) 01/20/18 05:00 Lymph # (Auto) 3.7 X10^3/uL (1.3-2.9) H 01/20/18 05:00 Morrison # (Auto) 0.7 x10^3/uL (0.3-0.8) 01/20/18 05:00 Eos # (Auto) 0.3 x10^3/uL (0.0-0.2) H 01/20/18 05:00 Baso # (Auto) 0.1 X10^3/uL (0.0-0.1) 01/20/18 05:00 Absolute Nucleated RBC 0.0 /100WBC 01/20/18 05:00 Sodium 143 mmol/L (136-145) 01/20/18 05:00 Corrected Sodium TNP 01/20/18 05:00 Potassium 4.1 mmol/L (3.5-5.1) 01/20/18 05:00 Chloride 108 mmol/L (98-107) H 01/20/18 05:00 Carbon Dioxide 24.4 mmol/L (21-32) 01/20/18 05:00 BUN 11 mg/dL (7-18) 01/20/18 05:00 Creatinine 0.61 mg/dL (0.55-1.02) 01/20/18 05:00 Est GFR (MDRD) Af Amer > 60 (>60) 01/20/18 05:00 Est GFR (MDRD) Non-Af > 60 (>60) 01/20/18 05:00 Glucose 90 mg/dL (65-99) 01/20/18 05:00 Lactic Acid 1.1 mmol/L (0.4-2.0) 01/16/18 17:00 Calcium 8.5 mg/dL (8.5-10.1) 01/20/18 05:00 Corrected Calcium 9.2 mg/dL (8.5-10.1) 01/20/18 05:00 Magnesium 2.0 mg/dL (1.7-2.9) 01/18/18 04:45 Total Bilirubin 0.20 mg/dL (0.2-1.0) 01/20/18 05:00 AST 13 Units/L (15-37) L 01/20/18 05:00 ALT 22 Units/L (12-78) 01/20/18 05:00 Alkaline Phosphatase 74 Units/L (46-116) 01/20/18 05:00 Total Protein 6.7 g/dL (6.4-8.2) 01/20/18 05:00 Albumin 3.1 g/dL (3.4-5.0) L 01/20/18 05:00 Globulin 3.6 g/dL (2.5-4.5) 01/20/18 05:00 Albumin/Globulin Ratio 0.9 Ratio (1.1-2.1) L 01/20/18 05:00 Influenza Type A (PCR) Negative (NEGATIVE) 01/16/18 16:41 Influenza Type B (PCR) Negative (NEGATIVE) 01/16/18 16:41 S. pyogenes (TEM-PCR) Not detected (NOT DETECT) 01/16/18 16:41 - Plan (1) Dehydration Status: Acute Plan: Labs, IV hydration (2) Myalgia Status: Acute Plan: labs (3) Pneumonia Status: Acute Plan: AM LABS, IV Antibiotics, RESP THERAPY AND SUPPLEMENTAL O2. CT CHEST TO EVALUATE ABNORMAL CXR FINDINGS (4) Lupus (systemic lupus erythematosus) Status: Chronic
== END 2018-01-20 11:20 | disposition home or self-care (01) | DRG 179 ==
LOC: MED/SURG 15:51
PROVIDERS: ADMIT Internal Medicine; ATTEND Internal Medicine
DX: R93.89 Abnormal findings on diagnostic imaging of other specified body structures; M32.8 Other forms of systemic lupus erythematosus; J06.9 Acute upper respiratory infection, unspecified; R50.9 Fever, unspecified; M79.10 Myalgia, unspecified site; E86.0 Dehydration; J15.6 Pneumonia due to other Gram-negative bacteria; R06.02 Shortness of breath; F41.8 Other specified anxiety disorders; R53.1 Weakness
CPT/HCPCS: 36415; 71020; 71046; 71260; 80053; 83605; 83735; 85025; 87040; 87070; 87077; 87186; 87205; 87502; 87651; 94640; 94760; A4222; G0378; J0456; J0696; J1650; J1956; J3490; J7030; J7050; J7620